=== PATIENT | male | born 1990 | race Caucasian/White ===

== ENCOUNTER 2022-07-02 11:16 | Emergency (ER) | payer OTHER ==
--- NOTE | 2022-07-02 11:27 | ED Physician Documentation ---
PD HPI MHE - Stated complaint Stated Complaint: MHE - History obtained from History obtained from: Patient, Police - Additional information Additional information: 31-year-old gentleman brought in by [employer] deputies for YEISON. He has no sp ecific complaints, thinks things have been taken out of context. Per independent history from police he has been acting strange for 3 days with Report of wanting to hang himself. Burning holes in the menon. Talking about differences in space-time. PD PAST MEDICAL HISTORY - Allergies Allergies/Adverse Reactions: Allergies Allergy/AdvReac Type Severity Reaction Status Date / Time No Known Drug Allergies Allergy Verified 07/02/22 11:33 PD ED PE NORMAL - Vitals Vital signs reviewed: Yes - General General: Alert and oriented X 3, Other (Mildly pressured speech) - HEENT HEENT: PERRL, EOMI - Neck Neck: Supple, no meningeal sign, No bony TTP - Cardiac Cardiac: Other (Modest resting tachycardia) - Respiratory Respiratory: Clear bilaterally - Abdomen Abdomen: Non tender - Derm Derm: No rash - Neuro Neuro: Alert and oriented X 3, Normal speech Results - Vitals Vitals: Vital Signs - 24 hr 07/02/22 07/02/22 07/02/22 11:22 12:31 12:43 Temperature 36.4 C L 36.9 C Heart Rate 110 H 111 H 115 H Respiratory 16 12 15 Rate Blood Pressure 129/72 165/102 H 165/102 H O2 Saturation 100 94 98 07/02/22 20:01 Temperature Heart Rate 89 Respiratory 18 Rate Blood Pressure 131/93 H O2 Saturation 100 Oxygen O2 Source Room air - EKG (time done) 1305 EKG releavant findings:: EKG personally interpreted by author of this note. Relevant findings are: Rate: Rate (enter#) (94) Rhythm: NSR [place]: Normal Intervals: Normal [place] QRS: Normal Ischemia: Normal ST segments Computer interpretation: Agree with computer - Labs Labs: Laboratory Tests 07/02/22 07/02/22 07/02/22 11:33 11:33 11:33 WBC 8.0 RBC 4.52 L Hgb 12.2 L Hct 37.8 L MCV 83.6 MCH 27.0 MCHC 32.3 RDW 13.6 Plt Count 287 MPV 9.4 Neut # (Auto) 4.3 Lymph # (Auto) 2.1 [place] # (Auto) 0.9 Eos # (Auto) 0.6 Baso # (Auto) 0.1 Absolute Nucleated RBC 0.00 Nucleated RBC % 0.0 Sodium 137 Potassium 3.8 Chloride 102 Carbon Dioxide 29 Anion Gap 6.0 BUN 12 Creatinine 1.1 Estimated GFR (MDRD) 79 L Glucose 103 H Calcium 8.6 Total Bilirubin 0.4 AST 35 ALT 31 Alkaline Phosphatase 46 Total Creatine Kinase 570 H Total Protein 7.3 Albumin 3.7 Globulin 3.6 Albumin/Globulin Ratio 1.0 Lipase 37 TSH 0.80 Urine Color Urine Clarity Urine pH Ur Specific [place] Urine Protein Urine Glucose (UA) Urine Ketones Urine Occult Blood Urine Nitrite Urine Bilirubin Urine Urobilinogen Ur Leukocyte Esterase Urine RBC Urine WBC Ur Squamous Epith Cells Urine Bacteria Ur Microscopic Review Urine Culture Comments Salicylates < 6.0 Urine Opiates Screen Ur Oxycodone Screen Urine Methadone Screen Ur Propoxyphene Screen Acetaminophen < 10 L Ur Barbiturates Screen Ur Tricyclics Screen Ur Phencyclidine Scrn Ur Amphetamine Screen U Methamphetamines Scrn U Benzodiazepines Scrn Urine Cocaine Screen U Cannabinoids Screen Ethyl Alcohol < 5.0 SARS-CoV-2 (PCR) 07/02/22 07/02/22 07/02/22 12:33 12:51 17:04 WBC RBC Hgb Hct MCV MCH MCHC RDW Plt Count MPV Neut # (Auto) Lymph # (Auto) [place] # (Auto) Eos # (Auto) Baso # (Auto) Absolute Nucleated RBC Nucleated RBC % Sodium Potassium Chloride Carbon Dioxide Anion Gap BUN Creatinine Estimated GFR (MDRD) Glucose Calcium Total Bilirubin AST ALT Alkaline Phosphatase Total Creatine Kinase 706 H Total Protein Albumin Globulin Albumin/Globulin Ratio Lipase TSH Urine Color YELLOW Urine Clarity HAZY Urine pH 7.0 Ur Specific [place] 1.010 Urine Protein NEGATIVE Urine Glucose (UA) NEGATIVE Urine Ketones NEGATIVE Urine Occult Blood LARGE H Urine Nitrite NEGATIVE Urine Bilirubin NEGATIVE Urine Urobilinogen 0.2 (NORMAL) Ur Leukocyte Esterase NEGATIVE Urine RBC 11-25 H Urine WBC 4-5 Ur Squamous Epith Cells RARE Squamous Urine Bacteria Few Ur Microscopic Review INDICATED Urine Culture Comments NOT INDICATED Salicylates Urine Opiates Screen NEGATIVE Ur Oxycodone Screen NEGATIVE Urine Methadone Screen NEGATIVE Ur Propoxyphene Screen NEGATIVE Acetaminophen Ur Barbiturates Screen NEGATIVE Ur Tricyclics Screen NEGATIVE Ur Phencyclidine Scrn NEGATIVE Ur Amphetamine Screen POSITIVE H U Methamphetamines Scrn NEGATIVE U Benzodiazepines Scrn NEGATIVE Urine Cocaine Screen NEGATIVE U Cannabinoids Screen NEGATIVE Ethyl Alcohol SARS-CoV-2 (PCR) NOT DETECTED PD Medical Decision Making - ED course ED course: 31-year-old gentleman presents with an acute psychosis on YEISON from [facility]'s department. He was having flight of ideas and agitated here. Difficult to complete the work-up and did require some chemical restraint to conclude the necessary work-up for social work and DCR evaluation. CBC reviewed with very mild normocytic anemia. CMP reviewed and normal. CK modestly elevated 570. TSH normal. Urinalysis with some blood in it, otherwise negative. Toxicology screen is only positive for amphetamine noting that he is on ADD meds so this may be an appropriate positive. After the chemical restraint he was somnolent for a time, in fact for a time he was too somnolent for the DCR to evaluate, but then woke up, the DCR saw him and read him his rights. After her evaluation negative presumed talking to family he was detained and accepted to [place]. [place] are completed and he is stable for transport. Departure - Departure Disposition: 65 Psych Hosp/Unit DC/Xfer Clinical Impression: Psychosis Qualifiers: Psychosis type: unspecified psychosis type Qualified Code(s): F29 - Unspecified psychosis not due to a substance or known physiological condition Condition: Stable
[2022-07-02 11:38] LABS: BASOPHILS # (AUTO) 0.1 10^3/uL (0.0-0.1); BASOPHILS % (AUTO) 0.8 %; EOSINOPHILS # (AUTO) 0.6 10^3/uL (0.0-0.7); EOSINOPHILS % (AUTO) 7.4 %; HCT - HEMATOCRIT 37.8 % (42.0-52.0); HGB - HEMOGLOBIN 12.2 g/dL (14.0-18.0); LYMPHOCYTES # (AUTO) 2.1 10^3/uL (1.5-3.5); LYMPHOCYTES % (AUTO) 26.2 %; MEAN CORPUSCULAR HGB CONC 32.3 g/dL (32.0-36.0); MEAN CORPUSCULAR VOLUME 83.6 fL (80.0-94.0); MEAN PLATELET VOLUME 9.4 fL (7.4-11.4); MONOCYTES # (AUTO) 0.9 10^3/uL (0.0-1.0); MONOCYTES % (AUTO) 11.7 %; NEUTROPHILS # (AUTO) 4.3 10^3/uL (1.5-6.6); NEUTROPHILS % (AUTO) 53.8 %; PLT - PLATELET COUNT 287 10^3/uL (130-450); RED BLOOD COUNT 4.52 10^6/uL (4.70-6.10); RED CELL DISTRIBUTION WIDTH 13.6 % (12.0-15.0)
[2022-07-02 11:56] LABS: ACETAMINOPHEN < 10 ug/mL (10-30); ALBUMIN 3.7 g/dL (3.2-5.5); ALKALINE PHOSPHATASE 46 IU/L (42-121); ALT ALANINE AMINOTRANSFERASE 31 IU/L (10-60); AST ASPARTATE AMINOTRANSFERASE 35 IU/L (10-42); BILIRUBIN,TOTAL 0.4 mg/dL (0.2-1.0); BUN - BLOOD UREA NITROGEN 12 mg/dL (6-20); CALCIUM 8.6 mg/dL (8.5-10.3); CARBON DIOXIDE - CO2 29 mmol/L (21-32); CHLORIDE 102 mmol/L (101-111); CK- CREATINE KINASE 570 IU/L (22-269); CREATININE 1.1 mg/dL (0.6-1.2); ETOH - ETHANOL < 5.0 mg/dL; GFR - MDRD 79 (>89); GLUCOSE 103 mg/dL (70-100); LIPASE 37 U/L (22-51); POTASSIUM 3.8 mmol/L (3.5-5.0); SALICYLATE < 6.0 mg/dL; SODIUM 137 mmol/L (135-145); TOTAL PROTEIN 7.3 g/dL (6.7-8.2)
[2022-07-02] MEDS ORDERED: OLANZapine 10 MG VIAL IM ONE (12:05)
[2022-07-02] MEDS ORDERED: LORazepam 2 MG/ML VIAL IM STA (12:05)
[2022-07-02] MEDS ORDERED: KETAMINE 500 MG/10 ML VIAL IM STA (12:05)
--- NOTE | 2022-07-02 12:30 | ED Physician Documentation ---
Restraint [id number]-Swzz - Immediate Situation Face to Face Evaluation Date: 07/02/22 Face to Face Evaluation Time: 12:28 Restraint Classification: Violent, chemical w/ physical hold Restraint Type: Chemical - Patient's Reaction & Behaviors Safety: Non-compliant Verbal: Demanding Harm: Potential harm to self, Potential harm to others Physical: Aggressive behavior Other: Disruption of therapy - Behavioral Condition Attitude: Indifferent Behavior: Agitated Orientation: Person, Place, Time Mood: Labile - Evaluation Review of Systems: Unobtainable due to agitation. Pertinent History/Illicit Drugs/Medications/Results: Patient was noncooperative with work-up, we were making no progress with verbal de-escalation and chemically sedated him with ketamine, Zyprexa, Ativan to allow for further work-up - Plan Need to Continue or Terminate Violent or Chemical Restraint: He needs some sedation to allow for further work-up. Hopefully the antipsychotics will reverse the primary etiology.
[2022-07-02 12:34] LABS: MUDS CUTOFF CONCENTRATIONS CUTOFF CONC BELOW:
[2022-07-02 12:38] LABS: BILIRUBIN,URINE NEGATIVE (NEGATIVE); GLUCOSE, URINE (UA) NEGATIVE (NEGATIVE); KETONES,URINE (UA) NEGATIVE (NEGATIVE); LEUKOCYTE ESTERASE, URINE NEGATIVE (NEGATIVE); NITRITE,URINE NEGATIVE (NEGATIVE); OCCULT BLOOD,URINE LARGE (NEGATIVE); PROTEIN,URINE NEGATIVE (NEGATIVE); UROBILINOGEN,URINE 0.2 (NORMAL) E.U./dL (NORMAL)
[2022-07-02 12:39] LABS: CLARITY,URINE HAZY (CLEAR)
--- NOTE | 2022-07-02 12:40 | ED Physician Documentation ---
Restraint [id number] - Immediate Situation Face to Face Evaluation Date: 07/02/22 Face to Face Evaluation Time: 12:39 Restraint Classification: Violent, physical Restraint Type: Locked extremity - Patient's Reaction & Behaviors Safety: Non-compliant Verbal: Demanding Harm: Potential harm to self, Potential harm to others Physical: Aggressive behavior, Fighting restraints - Behavioral Condition Attitude: Indifferent Behavior: Belligerent, Agitated Orientation: Disoriented to all Mood: Labile - Evaluation Review of Systems: Unobtainable due to agitation. Pertinent History/Illicit Drugs/Medications/Results: Patient was noncooperative with work-up, we were making no progress with verbal de-escalation and chemically sedated him with ketamine, Zyprexa, Ativan to allow for further work-up and to hopefully counteract some of what we presume is methamphetamine intoxication. - Plan Need to Continue or Terminate Violent or Chemical Restraint: Despite the chemical restraint he was still fighting care and placed in four- point locked restraints. Hopefully the chemical restraint will continue to work and violent restraints can be removed shortly.
[2022-07-02 12:45] LABS: BACTERIA,URINE Few /HPF (None Seen); SQUAMOUS EPITHELIAL CELL,UR RARE Squamous (<= Few)
[2022-07-02 12:47] LABS: AMPHETAMINE SCREEN,URINE POSITIVE (NEGATIVE); BARBITURATE SCREEN,UR NEGATIVE (NEGATIVE); BENZODIAZEPINES SCREEN, URINE NEGATIVE (NEGATIVE); COCAINE SCREEN URINE NEGATIVE (NEGATIVE); METHADONE SCREEN, URINE NEGATIVE (NEGATIVE); METHAMPHETAMINES SCREEN, URINE NEGATIVE (NEGATIVE); OPIATE SCREEN, URINE NEGATIVE (NEGATIVE); OXYCODONE SCREEN, URINE NEGATIVE (NEGATIVE); PROPOXYPHENE SCREEN, URINE NEGATIVE (NEGATIVE); THC CANNABINOID SCREEN, URINE NEGATIVE (NEGATIVE); TRICYCLIC ANTIDEPRESSANT,URINE NEGATIVE (NEGATIVE)
[2022-07-02 23:54] VITALS: BP 141/98
== END 2022-07-03 00:22 ==
LOC: ED 11:16
DX: F29 Unspecified psychosis not due to a substance or known physiological condition (principal); Z78.1 Physical restraint status; Z20.822 Contact with and (suspected) exposure to COVID-19
CPT/HCPCS: 36415; 80053; 80306; 80307; 80320; 80329; 81001; 82550; 83690; 84443; 85025; 87635; 93005; 96372; 99285; J2060; 81003; 87086